=== PATIENT | female | born 2000 | race Caucasian/White ===

== ENCOUNTER 2023-10-26 16:29 | Emergency (ER) | payer OTHER ==
[~2023-10-26] VITALS: Ht 170.2 cm; Wt 72.6 kg
[2023-10-26 16:55] VITALS: BP 111/56; TEMP 98.2; O2SAT 98
[2023-10-26] MEDS ORDERED: IBUP-1955 PO (17:22)
[2023-10-26] MEDS ORDERED: HYDR-3972 PO (17:22)
[2023-10-26] MEDS ORDERED: ACET-2605 PO (17:22)
[2023-10-26] MEDS ORDERED: HYDROCODONE/APAP 5/325MG TABLET ONE (17:28)
[2023-10-26] MEDS ORDERED: HYDROCODONE/APAP 5/325MG TABLET PO ONE (17:30)
== END 2023-10-26 18:04 | disposition home or self-care (01) ==
LOC: ER 16:41
DX: M25.562 Pain in left knee (principal); X50.1XXA Overexertion from prolonged static or awkward postures, initial encounter; Y93.K1 Activity, walking an animal; Y92.89 Other specified places as the place of occurrence of the external cause; Y99.8 Other external cause status